=== PATIENT | male | born 1990 ===

== ENCOUNTER 2022-08-09 15:41 | Inpatient (IN) | payer OTHER ==
[~2022-08-09] VITALS: Ht 177.8 cm; Wt 58.6 kg
[2022-08-09 16:12] LABS: Base Excess Venous -22.3 mmol/L; Bicarbonate Venous 10.2 mmol/L (24.0-30.0); PCO2 Venous 26.3 mmHg (38-42); pH Blood Venous 7.08 (7.34-7.37)
[2022-08-09 16:14] LABS: BASOPHILS ABSOLUTE AUTO 0.09 K/mm3 (0.00-0.23); BASOPHILS PERCENT AUTO 1 % (0-2); EOSINOPHILS ABSOLUTE AUTO 0.03 K/mm3 (0.00-0.68); EOSINOPHILS PERCENT AUTO 0 % (0-6); Hematocrit 51.8 % (37.0-53.0); Hemoglobin 16.5 g/dL (13.5-17.5); IMMATURE GRAN ABSOLUTE AUTO 0.12 K/mm3 (0.00-0.10); IMMATURE GRAN PERCENT AUTO 1 % (0-1); LYMPHOCYTES PERCENT AUTO 10 % (21-46); MONOCYTES ABSOLUTE AUTO 0.44 K/mm3 (0.16-1.47); MONOCYTES PERCENT AUTO 3 % (4-13); Mean Corpuscular HGB Conc 31.9 g/dL (31.5-36.5); Mean Corpuscular Volume 101 fL (80-100); Mean Platelet Volume 10.1 fL (9.1-12.4); NEUTROPHILS ABSOLUTE AUTO 13.99 K/mm3 (1.96-9.15); NEUTROPHILS PERCENT AUTO 86 % (41-73); Platelet Count 382 K/mm3 (150-400); RDW Coefficient Variation 13.1 % (11.7-14.2); RDW Standard Deviation 48.6 fL (35.1-46.3); Red Blood Cell Count 5.15 M/mm3 (4.30-5.90); White Blood Cell Count 16.27 K/mm3 (4.00-11.30)
[2022-08-09 16:35] LABS: Magnesium, Blood 2.9 mg/dL (1.6-2.4)
[2022-08-09 17:21] LABS: Albumin, Blood 4.2 g/dL (3.4-5.0); Albumin/Globulin Ratio 0.9 (0.8-1.8); Bilirubin, Total 0.7 mg/dL (0.1-1.0); Bun/Creatinine Ratio 23.4 (12.0-20.0); Calcium, Blood 10.3 mg/dL (8.5-10.1); Creatinine, Blood 1.24 mg/dL (0.60-1.20); Globulin, Blood 4.9 g/dL (2.2-4.0); Total Protein, Blood 9.1 g/dL (6.4-8.2)
[2022-08-09 17:23] LABS: Potassium, Blood 6.4 mmol/L (3.5-5.5)
[2022-08-09 17:43] LABS: Glucose, Blood 690 mg/dL (70-99); Phosphorus, Blood 7.9 mg/dL (2.5-4.9)
[2022-08-09 20:19] LABS: Bun/Creatinine Ratio 26.4 (12.0-20.0); Calcium, Blood 8.2 mg/dL (8.5-10.1); Creatinine, Blood 1.06 mg/dL (0.60-1.20); Potassium, Blood 5.5 mmol/L (3.5-5.5)
[2022-08-09 22:30] VITALS: BP 118/68
[2022-08-09 22:45] VITALS: BP 114/69
[2022-08-09 23:00] VITALS: BP 125/79
[2022-08-09 23:01] LABS: Source, Urine Clean Catch
[2022-08-09 23:06] LABS: Bilirubin, Urine Neg (Neg); Blood, Urine Neg (Neg); Glucose Qualitative, Urine 4+ (Neg); Ketones, Urine 4+ (Neg); Leukocyte Esterase, Urine Neg (Neg); Nitrite, Urine Neg (Neg); Protein, Urine 2+ (Neg); Specific Gravity, Urine 1.025 (1.003-1.022); Urobilinogen, Urine NORM (Normal)
[2022-08-09 23:15] VITALS: BP 122/78
[2022-08-09 23:17] LABS: Appearance, Urine Clear (Clear); Color, Urine Yellow (P-Yellow)
[2022-08-09 23:19] LABS: Bacteria Few /hpf; Granular Casts 0-2 /lpf (0); Red Blood Cells, Urine 0-2 /hpf (0-2); Squamous Epithelial Cells Few /hpf (Few); White Blood Cells, Urine 0-2 /hpf (0-5)
[2022-08-09 23:27] LABS: U Amphetamine Screen DETECTED; U Barbituate Screen Not Detected; U Benzodiazapine Screen Not Detected; U Buprenorphine Screen Not Detected; U Cannabinoids Screen Not Detected; U Cocaine Screen Not Detected; U Methadone Screen Not Detected; U Methamphetamine Screen DETECTED; U Opiates Screen Not Detected; U Oxycodone Screen Not Detected; U Phencyclidine Screen Not Detected
[2022-08-09 23:28] LABS: U Propoxyphene Screen Not Detected
[2022-08-09 23:30] VITALS: BP 123/75
--- NOTE | 2022-08-09 23:30 | NUR ---
ARRIVAL TO ICU PT ARRIVED TO ICU 9 AT 2220 VIA ED BED AND TRANSFERED OVER TO ICU BED VIA SLIDE SHEET. HE IS OBTUNDED AND REACTIVE TO PAINFUL STIMULI; IS MORE ALERT WHEN HE NEEDS TO USE THE URINAL AND WILL ANSWER Y/N QUESTIONS DURING THAT TIME BUT ONCE HE IS DONE URINATING HE FALLS BACK ASLEEP CHALLENGING TO AROUSE. AFEBRILE. SPO2 >98% ON RA. HR 130'S. BP STABLE. NO NAUSEA OR EMESIS AT THIS TIME. WAS ABLE TO USE THE URINAL WITH MINIMAL ASSISTANCE. INSULIN INFUSING AT 3UNITS/HR AND LR BOLUS INFUSING WHEN ARRIVED TO ICU. GLUCOSE DECREASED TO 233 AT 2315 CHECK; CALL MADE TO HOSPITALIST AND NEW ORDERS PROVIDED FOR D5 1/2NS AT 200ML/HR. INSULIN CONT TO INFUSE AT 3 UNITS/HR. SEE ADDMISSION ASSESSMENT FOR FULL ASSESSMENT.
[2022-08-09 23:43] LABS: Bun/Creatinine Ratio 27.6 (12.0-20.0); Calcium, Blood 8.4 mg/dL (8.5-10.1); Creatinine, Blood 0.8 mg/dL (0.60-1.20); Potassium, Blood 4.6 mmol/L (3.5-5.5)
[2022-08-09 23:45] VITALS: BP 127/84
[2022-08-10] VITALS (35 sets, daily range): BP systolic 110–138; BP diastolic 71–91
[2022-08-10 04:01] LABS: Magnesium, Blood 2.1 mg/dL (1.6-2.4)
[2022-08-10 04:17] LABS: Albumin/Globulin Ratio 0.9 (0.8-1.8); Bilirubin, Total 0.3 mg/dL (0.1-1.0); Calcium, Blood 8.4 mg/dL (8.5-10.1); Creatinine, Blood 0.68 mg/dL (0.60-1.20); Globulin, Blood 3.4 g/dL (2.2-4.0); Potassium, Blood 4.2 mmol/L (3.5-5.5)
[2022-08-10 04:18] LABS: Phosphorus, Blood 2.6 mg/dL (2.5-4.9); Total Protein, Blood 6.4 g/dL (6.4-8.2)
--- NOTE | 2022-08-10 05:52 | NUR ---
END OF SHIFT SUMMARY NO ACUTE EVENTS OVERNIGHT; PT SLEPT SINCE ARRIVAL TO ICU; CAN BE CHALLENGING TO AROUSE TO VERBAL STIMULI BUT HAS BEEN EASIER SINCE HERE IN ICU; HAS NOT ANSWERED ANY Y/N QUESTIONS YET. SPO2 >98% ON RA. HR 110-130. BP STABLE. NO NAUSEA OR EMESIS. USED URINAL ONCE WITH MINIMAL ASSIST. INSULIN INFUSING AT 5UNITS/HR; D5 1/2NS INFUSING AT 200ML/HR. WILL REPORT TO AM RN WHEN AVAILABLE.
--- NOTE | 2022-08-10 07:36 | NUR ---
ASSUMED CARE REPORT FROM [facility] [place] AT 0700. PT RESTING IN BED. RESPONSES TO NAME, WHEN ASKED HOW HE FEELS, STATES "GOOD". RETURNS TO REST. DOES NOT ANSWER ANY ADDITIONAL QUESTIONS. XI. LUNGS CLEAR. SR ON MONITOR, RATE 100-110'S. BP STABLE. ABD FLAT, SOFT, NON TENDER. HYPOACTIVE BT. INSULIN GTT INFUSING, q1 ABG. D5 1/2NS AT 200 ML/HR. WILL DISCUSS TRANSITION IN ROUNDS. WILL CONTINUE TO MONITOR.
[2022-08-10 07:59] LABS: Bun/Creatinine Ratio 26.7 (12.0-20.0); Calcium, Blood 8.5 mg/dL (8.5-10.1); Creatinine, Blood 0.64 mg/dL (0.60-1.20)
[2022-08-10] MEDS ORDERED: INSULANI SC (16:02)
[2022-08-10] MEDS ORDERED: INSULIN GL100 UNIT/3 SC (16:02)
--- NOTE | 2022-08-10 16:11 | NUR ---
RECIEVED REPORT FROM ICU NURSE RAYMOND. PATIENT WILL BE COMING OVER IN A WHEELCHAIR AFTER ITEMS IN THE ROOM ARE GATHERED.
--- NOTE | 2022-08-10 16:30 | NUR ---
SHIFT SUMMARY/TRANSFER TO SURGICAL PT TRANSITIONED OFF INSULIN GTT THIS SHIFT. TOLERATING PO WELL. A&O 4, FOLLOWS COMMANDS. DENIES N/V AND ABD PAIN. VSS. REPORT TO [facility] [place], PT TRANSFERRED TO 211 c ALL BELONGINGS.
--- NOTE | 2022-08-10 16:45 | NUR ---
1645 ARRIVED TO ROOM VIA WHEELCHAIR. ALERT, PLEASANT AND COOPERATIVE. PT DENIES ANY PAIN OR DISCOMFORT
--- NOTE | 2022-08-10 17:14 | NUR ---
ARRIVAL TO UNIT PT TRANSFERRED TO UNIT FROM ICU IN WHEELCHAIR. ABLE TO AMBUALTE TO THE BED INDEPENDENTLY. GOT INTO BED AND GOT COMFROTABLE. THEN TRIED GOING TO SLEEP. ASKED FOR SOME FOOD. PT IS TOLERTATING PO WELL. RESPONDS APPROPRIATLEY TO QUESITONS. CALL LIGHT WITHIN REACH.
--- NOTE | 2022-08-10 18:05 | NUR ---
pt lying with eyes closed, resp even and unlabored. awakens to verbal stimuli. pt oriented and cooperative. ambulating in room, steady on feet
--- NOTE | 2022-08-10 20:48 | NUR ---
BLOOD GLUCOSE 382 BG 382, GLARGINE 35 UNITS, AND NOVOLOG 5 UNITS GIVEN PER ORDERS. DR. LEUNG CALLED AND NOTIFIED OF PT BG AND WHAT WAS GIVEN. I RECEIVED NO ADDITIONAL ORDERS FOR PT BG.
[2022-08-11 04:26] VITALS: BP 125/86
[2022-08-11 05:04] LABS: Hematocrit 37.9 % (37.0-53.0); Mean Corpuscular HGB 31.7 pg (26.0-34.0); Mean Corpuscular HGB Conc 34.3 g/dL (31.5-36.5); Mean Platelet Volume 9.2 fL (9.1-12.4); Platelet Count 220 K/mm3 (150-400); RDW Standard Deviation 44.1 fL (35.1-46.3); White Blood Cell Count 6.91 K/mm3 (4.00-11.30)
[2022-08-11 05:06] LABS: Mean Corpuscular Volume 92 fL (80-100)
[2022-08-11 05:37] LABS: Albumin, Blood 2.5 g/dL (3.4-5.0); Albumin/Globulin Ratio 0.8 (0.8-1.8); Bilirubin, Total 0.4 mg/dL (0.1-1.0); Bun/Creatinine Ratio 32.6 (12.0-20.0); Calcium, Blood 8.1 mg/dL (8.5-10.1); Creatinine, Blood 0.55 mg/dL (0.60-1.20); Globulin, Blood 3.3 g/dL (2.2-4.0); Potassium, Blood 3.2 mmol/L (3.5-5.5); Total Protein, Blood 5.8 g/dL (6.4-8.2)
--- NOTE | 2022-08-11 05:54 | NUR ---
SHIFT SUMMARY PT HAS RESTED T/O THE SHIFT, BG IN THE UPPER 300'S AT THE START OF THE SHIFT. MEDICATED WITH INSULIN PER EMAR ORDERS AND NOTIFIED WITH NO ADDITIONAL ORDERS GIVEN. BG HAS STABALIZED OVERNIGHT AND IS 133 WITH AM LAB CHECK. PT HAS BEEN INDEPENDENT IN THE ROOM. TOLERATING PO INTAKE. NO COMPLAINTS, NO PAIN. BED IN LOWEST POSITION, CALL LIGHT WITHIN REACH.
[2022-08-11 07:31] VITALS: BP 112/81
[2022-08-11] MEDS ORDERED: HUMALOG KW100 UNIT/1 SC (12:36)
--- NOTE | 2022-08-11 13:00 | NUR ---
DISCHARGE SUMMARY PT A&OX4, VSS/RA, RICHI PO ADA, VOIDING, SHOWERED/DRESSED SELF, DENIES PAIN, AMB INDEPENDENTLY, 2 IVS DC'D. PACKED ALL STUFF AND SAID HE NEEDS TO CATCH HIS RIDE TO GP/HOME. DC INS PROVIDED. PT REP UNDERSTANDING THOSE INSTRUCTIONS INCLUDING MONITORING GLUCOSE AND TREATING W/INSULIN.
== END 2022-08-11 13:13 | disposition home or self-care (01) | DRG 637 ==
LOC: ER 15:41 → EDBD 15:41 → ICUW 21:11 → SURS 08-10 16:43
PROVIDERS: Internal Medicine; Nurse Practitioner Acute Care; Physician Assistant; Student in an Organized Health Care Education/Training Program; ADMIT Internal Medicine
DX: E10.10 Type 1 diabetes mellitus with ketoacidosis without coma (principal); G92.8 Other toxic encephalopathy; R65.10 Systemic inflammatory response syndrome (SIRS) of non-infectious origin without acute organ dysfunction; E87.5 Hyperkalemia; E87.6 Hypokalemia; F15.10 Other stimulant abuse, uncomplicated; E83.41 Hypermagnesemia; R00.0 Tachycardia, unspecified; R74.01 Elevation of levels of liver transaminase levels; F17.210 Nicotine dependence, cigarettes, uncomplicated; E83.39 Other disorders of phosphorus metabolism; Z91.148 Patient's other noncompliance with medication regimen for other reason
CPT/HCPCS: 36415; 70450; 71045; 80048; 80053; 81001; 82803; 82947; 83036; 83690; 83735; 84100; 85025; 85027; 93005; 93010; 96361; 96374; 99285-25; A9270; C9113; J1650; J1815; J2405; J7030; J7042; J7120